=== PATIENT | female | born 1945 | race African-American/Black ===

== ENCOUNTER 2018-05-05 16:05 | Outpatient (CLI) | payer MEDICARE ==
--- NOTE | 2018-05-05 16:38 | Mammography Report ---
BILATERAL DIGITAL SCREENING MAMMOGRAM with CAD : 05/05/18 16:05:00 CLINICAL: Routine screening. COMPARISON:02/14/15 FINDINGS: The breasts are heterogeneously dense, which may obscure small masses.Bilateral benign calcifications which are mostly arterial. No mass, architectural distortion or suspicious calcifications. IMPRESSION: No mammographic evidence of malignancy. BI-RADS CATEGORY: 2 -- Benign RECOMMENDATION: Routine mammographic screening in one year. COMMENT: Patient follow-up letters are generated by our [employer] application.
== END 2018-05-05 16:06 | disposition home or self-care (01) ==
LOC: SPVWC 16:05
PROVIDERS: ATTEND Student in an Organized Health Care Education/Training Program
DX: Z12.31 Encounter for screening mammogram for malignant neoplasm of breast (principal)
CPT/HCPCS: 77067